=== PATIENT | female | born 1980 | race Caucasian/White ===

== ENCOUNTER 2019-06-01 06:04 | Inpatient (IN) | payer BC, SELFPAY ==
[2019-06-01 06:30] LABS: Blood Gas Oxyhemoglobin 88.2 % (94-97); Blood O2 Saturation 92.8 % (92-98.5)
[2019-06-01] MEDS ORDERED: NA CHLORIDE 0.9% 1,000 ML ONE (06:42)
[2019-06-01] MEDS ORDERED: INSULIN -REGULAR HUMAN 50 UNIT/0.5 ML ML ONE ×3 (07:14→10:04)
[2019-06-01 07:16] LABS: Absolute Lymphocytes (CBC) 1.6 K/uL (0.7-4.9); Basophils % 0.3 % (0-1.3); Hematocrit 40.5 % (36.0-45.0); Lymphocytes % 6.7 % (15.3-44.8); MPV 8.8 fL (7.6-11.3); Monocytes % 9.5 % (3.3-12.3); RBC Red Blood Cell Count 5.13 M/uL (3.86-4.86)
[2019-06-01 07:18] LABS: Protime INR 0.99
[2019-06-01 07:35] LABS: Lipase 161 U/L (73-393); Troponin (Emerg Dept Use Only) < 0.02 ng/mL (0.0-0.045)
[2019-06-01 07:37] LABS: ALT/SGPT 15 U/L (12-78); AST/SGOT 9 U/L (15-37); Albumin 3.5 g/dL (3.4-5.0); Alkaline Phosphatase 123 U/L (45-117); BUN Blood Urea Nitrogen 49 mg/dL (7-18); Bicarbonate 31 mmol/L (21-32); Bilirubin Direct 0.1 mg/dL (0-0.2); Bilirubin Total 0.3 mg/dL (0.2-1.0); CKMB Creatine Kinase MB < 1.0 ng/mL (0.3-3.6); Creatine Phosphokinase 19 U/L (26-192); Potassium 3.5 mmol/L (3.5-5.1); Protein, Total 7.7 g/dL (6.4-8.2); Sodium Level 131 mmol/L (136-145)
--- NOTE | 2019-06-01 07:43 | RAD REPORT ---
EXAM DESCRIPTION: Evan Single View06/01/2019 6:28 am CLINICAL HISTORY: Chest pain/ vomiting COMPARISON: 2016 FINDINGS: The lungs appear clear of acute infiltrate. The heart is normal size IMPRESSION: No acute abnormalities displayed
[2019-06-01 07:53] LABS: Glucose Level 550 mg/dL (74-106)
--- NOTE | 2019-06-01 08:12 | ER ---
Nurse's Notes [facility] Name: Monique Junior Age: 38 yrs Sex: Female : 1980 Arrival Date: 06/01/2019 Time: 06:05 Bed 5 Private MD: Diagnosis: Hyperglycemia, unspecified;Dehydration;Hypoxemia Presentation: 06/01 06:05 Presenting complaint: EMS states: patient complaint of nausea and vomiting for 2 days. rr5 near syncopal attack, hit her butt, No LOC noted. she is insulin dependent last check of her sugar was Sunday she is taking the insulin but not checking the sugar. CBG 591mg/dl. positive orthostatic hypotension systolic BP from 100-70mmHG and HR of 100-120 bpm. conscious oriented. 06:05 Transition of care: patient was not received from another setting of care. Onset of rr5 symptoms was June 01, 2019. Risk Assessment: Do you want to hurt yourself or someone else? Patient reports no desire to harm self or others. Initial Sepsis Screen: Does the patient meet any 2 criteria? RR > 20 per min. Systolic BP < 90 mmHg. HR > 90 bpm. Yes Does the patient have a suspected source of infection? No. Patient's initial sepsis screen is negative. Care prior to arrival: IV cannula at right hand G22 by EMS. 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 - Social history:: Smoking status: Patient uses tobacco products, smokes one-half pack cigarettes per day, Patient/guardian denies using alcohol, street drugs. - Ebola Screening: : Patient negative for fever greater than or equal to 101.5 degrees Fahrenheit, and additional compatible Ebola Virus Disease symptoms Patient denies exposure to infectious person Patient denies travel to an Ebola-affected area in the 21 days before illness onset. Screenin:22 Abuse screen: Denies threats or abuse. Denies injuries from another. Nutritional rr5 screening: No deficits noted. Tuberculosis screening: No symptoms or risk factors identified. Fall Risk IV access (20 points). Gait- Weak (10 pts.). Mental Status- Oriented to own ability (0 pts). Total Caputo Fall Scale indicates Low Risk Score (25-44 pts). Fall prevention measures have been instituted. Side Rails Up X 2 Placed close to Nursing Station Frequent Obs/Assesments occuring Family Present and informed to notify staff if they need to leave bedside As available Patient and Family Educated on Fall Prevention Program and strategies. Assessment: 06:05 General: Appears in no apparent distress. uncomfortable, Behavior is cooperative, rr5 drowsy. Pain: Complains of pain in back,buttocks and knees Pain does not radiate. Pain currently is 8 out of 10 on a pain scale. Quality of pain is described as aching, Pain began suddenly. Neuro: Level of Consciousness is awake, obeys commands, drowsy. Oriented to person, place, time, situation, Appropriate for age Speech is normal, Reports a syncopal episode. 06:05 Cardiovascular: Capillary refill < 3 seconds Patient's skin is warm and dry. Rhythm is rr5 sinus tachycardia. Respiratory: Airway is patent Respiratory effort is even, unlabored, Respiratory pattern is regular, symmetrical, tachypnea. GI: Abdomen is flat, Reports nausea, vomiting. : No signs and/or symptoms were reported regarding the genitourinary system. EENT: No signs and/or symptoms were reported regarding the EENT system. Derm: Skin is intact, Skin temperature is warm. Musculoskeletal: Circulation, motion, and sensation intact. Capillary refill < 3 seconds, Range of motion: intact in all extremities. 06:16 Reassessment: Patient appears in no apparent distress at this time. ED provider aware rr5 for the CBG > 500mg/dl with order made and carried out. 07:19 Reassessment: lights dimmed for patient comfort. Family member at bedside. Call light ss within reach. 08:30 Reassessment: Pt is resting in exam room 5. Eyes closed, respirations remain even and ss unlabored. Pt is difficult to arouse, but awake with painful stimuli and/or loud verbal stimuli. Daughter at bedside. Awaiting room assignment for admission. 09:56 Reassessment: Room assignment of 403 given. Daughter notified and asks that Dr. Estrella ss sees patient to discuss results and plan of care prior to leaving ED. Dr. Estrella called per request and also because blood pressure is 77/54 at this time. Awaiting return phone call. Neuro: Level of Consciousness is awake, drowsy. Respiratory: Airway is patent Respiratory effort is even, unlabored, Respiratory pattern is regular, symmetrical. Derm: Skin is pink, warm \T\ dry. 10:25 Reassessment: Iveth Lee NP and Dr. Mccoy notified that patient's blood pressure ss has not improved despite fluid administration. Pt still appears drowsy and difficult to arouse. Iveth Lee orders to administer Narcan 0.2 IVP and to observe for improvement. 10:27 Reassessment: Pt appears restless at this time, states she has all of her chronic pain ss that came back suddenly after Narcan administration. Pt is awake and alert. 11:00 Reassessment: Pt is awake, alert and obeys commands. Is upset because after Narcan ss administration her chronic pain has increased significantly. Iveth Lee NP notified. No further orders or interventions given. at bedside now and verbalizes understanding that no further pain medication have been ordered for the stay in the ER and patient will soon be transferred to fourth floor for further observation, assessment and/or interventions. Patient states that she is ready to go upstairs right now otherwise she will want to go home because she is mad that no other pain medications have been ordered at this time. Vital Signs: 06:05 BP 85 / 70; Pulse 110; Resp 24; Temp 99.4; Pulse Ox 98% ; Weight 54.43 kg; Height 5 ft. rr5 0 in. (152.40 cm); Pain 8/10; 06:30 BP 88 / 71; Pulse 108; Resp 20; Pulse Ox 97% on R/A; rr5 07:00 BP 92 / 64; Pulse 109; Resp 21; Pulse Ox 97% on R/A; rr5 07:35 BP 93 / 72; Pulse 109; Resp 22; Temp 99.2(O); Pulse Ox 97% on R/A; Pain 8/10; ss 08:44 BP 109 / 81; Pulse 110; Resp 21; Temp 99.4(TE); Pulse Ox 97% on R/A; ss 09:39 BP 83 / 60; Pulse 101; Resp 20; ss 09:45 BP 78 / 60; Pulse 102; Resp 20; Pulse Ox 96% on R/A; ss 09:54 BP 77 / 54; Pulse 105; Resp 21; Temp 98.6(O); Pulse Ox 98% on R/A; ss 10:17 BP 68 / 51; Pulse 103; ss 10:17 Pulse Ox 96% on R/A; ss 10:26 BP 66 / 46; Pulse 106; Resp 19; Pulse Ox 95% on R/A; ss 10:54 BP 84 / 63; Pulse 102; Resp 22; Pulse Ox 96% on R/A; Pain 9/10; ss 11:03 BP 93 / 65; Pulse 100; ss 11:03 Pulse Ox 98% on R/A; ss 06:05 Body Mass Index 23.44 (54.43 kg, 152.40 cm) rr5 Vitals: 08:30 Cardiac Rhythm Assessment Sinus tach. ss ED Course: 06:05 Patient arrived in ED. ds1 06:05 Patient has correct armband on for positive identification. Placed in gown. Bed in low rr5 position. Call light in reach. Side rails up X2. monitor tech on. Pulse ox on. NIBP on. 06:05 Maintain EMS IV. Dressing intact. Site clean \T\ dry. Gauge \T\ site: G22 at right hand. rr 5 flush well but slow IV flow noted.. 06:06 [facility]. snw 06:06 Barry Harrison MD is Attending Physician. snw 06:12 Jarrett Cutler RN is Primary Nurse. rr5 06:15 Warm blanket given. Trendelenburg postion. rr5 06:17 Triage completed. rr5 06:21 Arm band placed on right wrist. rr5 06:28 Chest Single View XRAY In Process Unspecified. EDMS 06:50 Inserted saline lock: 20 gauge in right wrist, using aseptic technique. Blood collected.rr5 06:50 Initial lab(s) drawn, by me, First set of blood cultures drawn by me. rr5 08:11 Celine Estrella MD is Hospitalizing Provider. snw 09:01 No provider procedures requiring assistance completed. Patient admitted, IV remains in ss place. 10:54 Straight cath inserted, using sterile technique, 16 Fr. Specimen obtained. Returned ss cloudy urine. Patient tolerated well. Patient maintains SpO2 saturation greater than 95% on room air. Administered Medications: 06:50 Drug: NS 0.9% (30 ml/kg) 30 ml/kg Route: IV; Rate: bolus; Site: right wrist; rr5 10:30 Follow up: IV Status: Completed infusion; IV Intake: 1632ml ss 11:01 Follow up: Dr. Braydon Mccoy orders to have rest of 2nd liter bolus given now ss 07:02 Drug: Insulin Regular Human 5 units {Co-Signature: jconor (Tono Epps RN).} Route: rr5 IVP; Site: right wrist; 07:52 Follow up: Response: No adverse reaction; Blood sugar is lowered sv 07:56 Drug: Insulin Regular Human 5 units {Co-Signature: sv (Arleen Ceron RN).} Route: ss IVP; Site: right wrist; 08:45 Follow up: Response: Blood sugar is lowered ss 09:49 Drug: Insulin Regular Human 5 units {Co-Signature: sv (Arleen Ceron RN).} Route: ss IVP; Site: right wrist; 10:58 Follow up: Response: Blood sugar is lowered ss 10:26 Drug: NARcan 0.2 mg Route: IVP; Site: right wrist; ss 11:11 Follow up: Response: Marked relief of symptoms ss 10:57 Not Given (provider discretion, 0.2 mg ordered): NARcan 0.4 mg IVP once ss Point of Care Testing: Blood Glucose: 06:16 Blood Glucose: High (>450 mg/dL); jd3 07:35 Blood Glucose: 439 mg/dL; ss 08:44 Blood Glucose: 361 mg/dL; ss 09:45 Blood Glucose: 374 mg/dL; ss 10:55 Blood Glucose: 238 mg/dL; ss 06:16 blood drawn to send to lab. [facility] Ranges: Intake: 10:30 IV: 1632ml; Total: 1632ml. ss Output: 10:55 Urine: 300ml (Straight Cath); Total: 300ml. ss Outcome: 08:12 Decision to Hospitalize by Provider. snw 09:01 Instructed on the need for admit. ss 11:18 Admitted to Tele accompanied by tech, family with patient, via stretcher, room 403, Report called to Mitzi 11:18 Condition: improved 11:19 Patient left the ED. ss Signatures: Dispatcher [employer] Arleen Griffin, RN RN sv Iveth eLe, MARGARET-C UI APPLICATION DEVELOPER-Raquel Cruz ds1 Patricia Carson RN RN ss Tono Epps RN RN jd3 Jarrett Cutler RN RN rr5 Tono barrosd3 Arleen Ceron RN sv Corrections: (The following items were deleted from the chart) 07:05 06:05 Acuity: MORRO 3 rr5 rr5 07:06 06:05 Initial Sepsis Screen: Does the patient meet any 2 criteria? Systolic BP < 90 rr5 mmHg. HR > 90 bpm. Yes Does the patient have a suspected source of infection? No. Patient's initial sepsis screen is negative. rr5 09:05 06:21 Home Meds: gabapentin oral oral; rr5 ss 17:49 10:15 Reassessment: Iveth Lee, TIMERS INSPECTOR and Dr. Mccoy notified that patient's blood ss pressure has not improved despite fluid administration. Pt still appears drowsy and difficult to arouse. Iveth Lee orders to administer Narcan 0.2 IVP and to observe for improvement. ss
--- NOTE | 2019-06-01 08:13 | EDPHYS ---
Physician Documentation [facility] Name: Monique Junior Age: 38 yrs Sex: Female : 1980 Arrival Date: 06/01/2019 Time: 06:05 Bed 5 Private MD: ED Physician Barry Harrison HPI: 06/01 06:20 This 38 yrs old Female presents to ER via EMS with complaints of snw Nausea/Vomiting, Near Syncope. 06:20 The patient presents to the emergency department with nausea, vomiting, abdominal pain. snw Onset: The symptoms/episode began/occurred suddenly, 2.5 day(s) ago. Possible causes: flare up of bowel problem, gastroparesis, IDDM. The symptoms are aggravated by nothing. Severity of symptoms: At their worst the symptoms were severe in the emergency department the symptoms have improved. The patient has experienced similar episodes in the past, multiple times. It is unknown whether or not the patient has recently seen a physician, Dr. Trent/Dr. Echols. 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 - Social history:: Smoking status: Patient uses tobacco products, smokes one-half pack cigarettes per day, Patient/guardian denies using alcohol, street drugs. - Ebola Screening: : Patient negative for fever greater than or equal to 101.5 degrees Fahrenheit, and additional compatible Ebola Virus Disease symptoms Patient denies exposure to infectious person Patient denies travel to an Ebola-affected area in the 21 days before illness onset. ROS: 06:19 Eyes: Negative for injury, pain, redness, and discharge, ENT: Negative for injury, snw pain, and discharge, Neck: Negative for injury, pain, and swelling, Cardiovascular: Negative for chest pain, palpitations, and edema, Respiratory: Negative for shortness of breath, cough, wheezing, and pleuritic chest pain, Back: Negative for injury and pain, : Negative for injury, bleeding, discharge, and swelling, MS/Extremity: Negative for injury and deformity, Skin: Negative for injury, rash, and discoloration. 06:19 Constitutional: Positive for fatigue, malaise, poor PO intake. 06:19 Abdomen/GI: Positive for nausea and vomiting. 06:19 Neuro: Positive for near syncope. Exam: 06:18 Head/Face: Normocephalic, atraumatic. Eyes: Pupils equal round and reactive to light, snw extra-ocular motions intact. Lids and lashes normal. Conjunctiva and sclera are non-icteric and not injected. Cornea within normal limits. Periorbital areas with no swelling, redness, or edema. 06:18 Neck: Trachea midline, no thyromegaly or masses palpated, and no cervical lymphadenopathy. Supple, full range of motion without nuchal rigidity, or vertebral point tenderness. No Meningismus. Chest/axilla: Normal chest wall appearance and motion. Nontender with no deformity. No lesions are appreciated. 06:18 Respiratory: Lungs have equal breath sounds bilaterally, clear to auscultation and percussion. No rales, rhonchi or wheezes noted. No increased work of breathing, no retractions or nasal flaring. Abdomen/GI: Soft, non-tender, with hypoactive bowel sounds. No distension or tympany. No guarding or rebound. No evidence of tenderness throughout. Back: No spinal tenderness. No costovertebral tenderness. Full range of motion. 06:18 Neuro: Awake and alert, GCS 15, oriented to person, place, time, and situation. Cranial nerves II-XII grossly intact. Motor strength 5/5 in all extremities. Sensory grossly intact. Cerebellar exam normal. Normal gait. Psych: Awake, alert, with orientation to person, place and time. Behavior, mood, and affect are within normal limits. 06:18 Constitutional: The patient appears alert, awake, frail, listless. 06:18 ENT: Mouth: Oral mucosa: dry, Dental exam: missing teeth, diffusely, Voice: is normal. 06:18 Cardiovascular: Rate: tachycardic, Heart sounds: normal. 06:18 Skin: Appearance: Color: pale, Moisture: dry. Vital Signs: 06:05 BP 85 / 70; Pulse 110; Resp 24; Temp 99.4; Pulse Ox 98% ; Weight 54.43 kg; Height 5 ft. rr5 0 in. (152.40 cm); Pain 8/10; 06:30 BP 88 / 71; Pulse 108; Resp 20; Pulse Ox 97% on R/A; rr5 07:00 BP 92 / 64; Pulse 109; Resp 21; Pulse Ox 97% on R/A; rr5 07:35 BP 93 / 72; Pulse 109; Resp 22; Temp 99.2(O); Pulse Ox 97% on R/A; Pain 8/10; ss 08:44 BP 109 / 81; Pulse 110; Resp 21; Temp 99.4(TE); Pulse Ox 97% on R/A; ss 09:39 BP 83 / 60; Pulse 101; Resp 20; ss 09:45 BP 78 / 60; Pulse 102; Resp 20; Pulse Ox 96% on R/A; ss 09:54 BP 77 / 54; Pulse 105; Resp 21; Temp 98.6(O); Pulse Ox 98% on R/A; ss 10:17 BP 68 / 51; Pulse 103; ss 10:17 Pulse Ox 96% on R/A; ss 10:26 BP 66 / 46; Pulse 106; Resp 19; Pulse Ox 95% on R/A; ss 10:54 BP 84 / 63; Pulse 102; Resp 22; Pulse Ox 96% on R/A; Pain 9/10; ss 11:03 BP 93 / 65; Pulse 100; ss 11:03 Pulse Ox 98% on R/A; ss 06:05 Body Mass Index 23.44 (54.43 kg, 152.40 cm) rr5 MDM: 06:42 Data reviewed: vital signs, nurses notes. Data interpreted: Pulse oximetry: on room air snw is 98 %. Interpretation: normal. ED course: Discussed with RT the ABG results not matching pt clinical picture, resistant to re-draw. Will await chemistries. 06:48 Patient medically screened. snw 08:12 Counseling: I had a detailed discussion with the patient and/or guardian regarding: the snw historical points, exam findings, and any diagnostic results supporting the discharge/admit diagnosis, the presence of at least one elevated blood pressure reading (>120/80) during this emergency department visit, lab results, radiology results, the need for outpatient follow up, to return to the emergency department if symptoms worsen or persist or if there are any questions or concerns that arise at home. Physician consultation: Celine Estrella MD was called at 08:00, was contacted at 08:12, regarding admission, to the telemetry unit. 11:02 ED course: pt had some hypotension post fluid bolus, has remained sedate through ER snw visit, evidence on ABG of hypoventilation, home meds include valium, tramadol, and norco. Gave Narcan 0.2mg and response was almost immediate. VSS. Will transfer to inpatient unit.. 06/01 06:11 Order name: ABG; Complete Time: 06:42 snw 06/01 06:11 Order name: T\T\S [facility] 06/01 06:11 Order name: Basic Metabolic Panel [facility] 06/01 06:11 Order name: Blood Culture Adult (2) snw 06/01 06:11 Order name: CBC with Diff w 06/01 06:11 Order name: Ckmb sn 06/01 06:11 Order name: CPK [facility] 06/01 06:11 Order name: Lactate [facility] 06/01 06:11 Order name: LFT's [facility] 06/01 06:11 Order name: Lipase; Complete Time: 07:53 snw 06/01 06:11 Order name: Procalcitonin; Complete Time: 07:55 snw 06/01 06:11 Order name: Protime (+inr); Complete Time: 07:22 snw 06/01 06:11 Order name: Ptt, Activated; Complete Time: 07:22 snw 06/01 06:11 Order name: Troponin (emerg Dept Use Only); Complete Time: 07:53 snw 06/01 06:11 Order name: Urine Microscopic Only w 06/01 06:12 Order name: Type and Screen; Complete Time: 08:12 EDMS 06/01 06:12 Order name: Basic Metabolic Panel; Complete Time: 07:53 EDMS 06/01 06:13 Order name: Blood Culture EDWA 06/01 06:13 Order name: CBC with Automated Diff; Complete Time: 09:40 EDMS 06/01 06:13 Order name: CKMB Creatine Kinase MB; Complete Time: 07:53 EDMS 06/01 06:14 Order name: Glucose, Ancillary Testing; Complete Time: 06:31 EDMS 06/01 06:14 Order name: Creatine Phosphokinase; Complete Time: 07:53 EDMS 06/01 06:14 Order name: Lactate; Complete Time: 07:53 EDMS 06/01 06:14 Order name: Liver (Hepatic) Function; Complete Time: 07:53 EDMS 06/01 06:15 Order name: Glucose, Ancillary Testing EDMS 06/01 06:51 Order name: Ketone, Serum; Complete Time: 07:53 snw 06/01 09:28 Order name: Manual Differential; Complete Time: 09:40 EDMS 06/01 10:07 Order name: Urine Drug Screen eb 06/01 10:24 Order name: ABO/RH no charge; Complete Time: 10:26 EDMS 06/01 06:11 Order name: Urine Test (obtain specimen); Complete Time: 10:59 snw 06/01 06:11 Order name: Chest Single View XRAY; Complete Time: 07:53 snw 06/01 06:11 Order name: Accucheck; Complete Time: 06:25 snw 06/01 06:11 Order name: Cardiac monitoring; Complete Time: 06:24 snw 06/01 06:11 Order name: EKG - Nurse/Tech; Complete Time: 07:06 snw 06/01 06:11 Order name: IV Saline Lock - Large Bore; Complete Time: 07:06 snw 06/01 06:11 Order name: Labs collected and sent; Complete Time: 07:06 snw 06/01 06:11 Order name: O2 Per Protocol; Complete Time: 06:26 snw 06/01 06:11 Order name: O2 Sat Monitoring; Complete Time: 06:26 snw 06/01 06:11 Order name: Urine Dipstick-Ancillary (obtain specimen); Complete Time: 10:59 snw 06/01 06:52 Order name: FSBS: at 0730; Complete Time: 07:41 snw 06/01 09:42 Order name: FSBS; Complete Time: 09:45 snw 06/01 09:46 Order name: NPO; Complete Time: 09:49 snw 06/01 10:36 Order name: Lactate Sepsis 2 HR Follow-up; Complete Time: 10:37 EDMS 06/01 10:50 Order name: Urine Dipstick--Ancillary (enter results) eb 06/01 10:50 Order name: Urine --Ancillary (enter results) eb 06/01 11:01 Order name: Urine Drug Screen; Complete Time: 11:02 EDMS 06/01 11:05 Order name: FSBS; Complete Time: 11:11 snw 06/01 11:11 Order name: Urine --Ancillary; Complete Time: 11:18 EDMS 06/01 11:11 Order name: Urine Dipstick-Ancillary; Complete Time: 11:18 EDMS 06/01 11:18 Order name: Glucose, Ancillary Testing; Complete Time: 11:20 EDMS 06/01 11:18 Order name: Glucose, Ancillary Testing; Complete Time: 11:20 EDMS 06/01 11:18 Order name: Glucose, Ancillary Testing; Complete Time: 11:20 EDMS 06/01 11:18 Order name: Glucose, Ancillary Testing; Complete Time: 11:20 EDMS Administered Medications: 06:50 Drug: NS 0.9% (30 ml/kg) 30 ml/kg Route: IV; Rate: bolus; Site: right wrist; rr5 10:30 Follow up: IV Status: Completed infusion; IV Intake: 1632ml ss 11:01 Follow up: Dr. Braydon Mccoy orders to have rest of 2nd liter bolus given now ss 07:02 Drug: Insulin Regular Human 5 units {Co-Signature: jd3 (Tono Epps RN).} Route: rr5 IVP; Site: right wrist; 07:52 Follow up: Response: No adverse reaction; Blood sugar is lowered sv 07:56 Drug: Insulin Regular Human 5 units {Co-Signature: sv (Arleen Ceron RN).} Route: ss IVP; Site: right wrist; 08:45 Follow up: Response: Blood sugar is lowered ss 09:49 Drug: Insulin Regular Human 5 units {Co-Signature: sv (Arleen Ceron RN).} Route: ss IVP; Site: right wrist; 10:58 Follow up: Response: Blood sugar is lowered ss 10:26 Drug: NARcan 0.2 mg Route: IVP; Site: right wrist; ss 11:11 Follow up: Response: Marked relief of symptoms ss 10:57 Not Given (provider discretion, 0.2 mg ordered): NARcan 0.4 mg IVP once ss Point of Care Testing: Blood Glucose: 06:16 Blood Glucose: High (>450 mg/dL); jd3 07:35 Blood Glucose: 439 mg/dL; ss 08:44 Blood Glucose: 361 mg/dL; ss 09:45 Blood Glucose: 374 mg/dL; ss 10:55 Blood Glucose: 238 mg/dL; ss 06:16 blood drawn to send to lab. jd3 Ranges: Critical Glucose Levels:Adult <50 mg/dl or >400 mg/dl <40 mg/dl or >180 mg/dl Disposition: 06/01/19 08:12 Hospitalization ordered by Celine Estrella for Inpatient Admission. Preliminary diagnosis are Hyperglycemia, unspecified, Dehydration, Hypoxemia. - Bed requested for Telemetry/MedSurg (Inpatient). - Status is Inpatient Admission. ss - Condition is Stable. - Problem is new. - Symptoms are unchanged. UTI on Admission? No Addendum: 06/05/2019 07:58 Co-signature as Attending Physician, Barry Harrison MD. g s Signatures: Dispatcher [employer] EDWA Arleen Ceron, CONSTANTINO RN Iveth Bedoya, [employer]-C [employer]-Patricia Rolle RN RN Barry Harrison MD MD gs Botello, Elizabeth eb Roque, Raymond RN RN rr5 Tono Epps RN jd3 Arleen Ceron RN Corrections: (The following items were deleted from the chart) 06/01 07:12 06:15 GLUCOSE+C.LAB.BRZ ordered. EDWA EDMS 09:05 06:21 Home Meds: gabapentin oral oral; rr5 09:33 08:12 Hospitalization Ordered by Celine Estrella MD for Inpatient Admission. Preliminary eb diagnosis is Hyperglycemia, unspecified; Dehydration; Hypoxemia. Bed requested for Telemetry/MedSurg (Inpatient). Status is Inpatient Admission. Condition is Stable. Problem is new. Symptoms are unchanged. UTI on Admission? No. snw 11:19 09:33 06/01/2019 08:12 Hospitalization Ordered by Celine Estrella MD for Inpatient ss Admission. Preliminary diagnosis is Hyperglycemia, unspecified; Dehydration; Hypoxemia. Bed requested for Telemetry/MedSurg (Inpatient). Status is Inpatient Admission. Condition is Stable. Problem is new. Symptoms are unchanged. UTI on Admission? No. eb
[2019-06-01 09:27] LABS: Blood Morphology Comment NOT SEEN (NOT SEEN); Platelet Estimate ADEQ
[2019-06-01] MEDS ORDERED: NALOXONE 0.4 MG/ML VIAL ONE (10:35)
[2019-06-01 11:01] LABS: Barbiturates NEGATIVE (NEGATIVE); Benzodiazepines POSITIVE (NEGATIVE); Cocaine NEGATIVE (NEGATIVE); METHAMPHETAM NEGATIVE (NEGATIVE); Methadone NEGATIVE (NEGATIVE); Opiates POSITIVE (NEGATIVE); Phencyclidine NEGATIVE (NEGATIVE); THC Cannibis NEGATIVE (NEGATIVE)
[2019-06-01 11:11] LABS: Urine Blood NEGATIVE (NEG); Urine Glucose 2+ (NEG); Urine Protein 1+ (NEG); Urine Specific Gravity 1.015 (1.005-1.030)
[2019-06-01] MEDS ORDERED: ACETAMINOPHEN 500 MG TAB PO PRN (11:21)
[2019-06-01] MEDS: NA CHLORIDE 0.9% 1,000 ML IV SCH ×2 (13:02→22:00)
[2019-06-01] MEDS: INSULIN -REGULAR HUMAN 50 UNIT/0.5 ML ML SQ SCH ×3 (13:03→21:00)
[2019-06-01] MEDS ORDERED: TRAMADOL HCL 50 MG TAB PO PRN (13:05)
[2019-06-01] MEDS ORDERED: D50W 25 GM/50 ML SYRINGE IV PRN (15:12)
[2019-06-01] MEDS ORDERED: GLUCAGON 1 MG/VIAL IM PRN (15:12)
[2019-06-01] MEDS ORDERED: DIAZEPAM 5 MG TABLET PO PRN (15:17)
[2019-06-01] MEDS: CEFTRIAXONE/SWI 1gm 1 GM/10 ML SYR IVP SCH (16:00)
[2019-06-01] MEDS: INSULIN GLARGINE 100 UNITS/ML SQ SCH (16:50)
--- NOTE | 2019-06-01 20:10 | EKG ---
Test Date: 2019-06-01 Test Time: 06:14:03 Batch Still Operator: GIGI MEASUREMENT RESULTS: Intervals: Rate: 112 AK: 136 QRSD: 84 QT: 324 QTc: 442 [place]: P: 62 AK: 136 QRS: 67 T: 162 INTERPRETIVE STATEMENTS: Sinus tachycardia ST & T wave abnormality, consider lateral ischemia Abnormal ECG Compared to ECG 12/28/2016 17:24:00 ST (T wave) deviation now present Possible ischemia now present Electronically Signed On 06-01-19 20:08:52 CDT by Rowdy Crowell
[2019-06-01] MEDS ORDERED: HOME MED 1 EA UNK (Gabapentin [Gabapentin] 600 MG) PO SCH (21:00)
[2019-06-01] MEDS ORDERED: MIDODRINE HCL 5 MG TABLET PO SCH (21:00)
[2019-06-01] MEDS: GABAPENTIN 300 MG CAP PO SCH (21:52)
[2019-06-01] MEDS: HYDROCODONE/APAP 7.5/325 MG TAB PO PRN (21:52)
--- NOTE | 2019-06-02 01:55 | HP ---
Date of Admission: 06/01/2019 Chief Complaint: Altered mental status, hyperglycemia. History Of Present Illness: The patient is a 38-year-old female with past medical history of diabete s with neuropathy, chronic back pain on chronic pain medications and recent infection of the nose wit h Acinetobacter, completed Cipro recently, comes in with a near-syncopal episode. The patient was in the bathroom, tried to get off the commode and fell back, blacked out for couple of seconds, felt ve ry weak. The patient came into the ER for further evaluation. Her symptoms are constant, moderate, progressively worsening. She did report some nausea and vomiting x1. No fever or chills. The patie nt reports back pain and pain in her arms, which is chronic. In the ER her workup was [place] [address], her creatinine was elevated at 1.31, usually normal at baseline. Her anion gap was not elevated. She did have elevated lactate at 3.6. Troponin level was negative. Chest x-ray was clear. UA is still pending; however, did show some trace leukocyte esterase. She does have a history of frequent UTIs. The patient was given IV fluids and then referred for admissio n. She was also given 10 units of regular insulin. Past Medical History: Diabetes mellitus type 2, insulin requiring; chronic UTI; chronic back pain, o n narcotics; gastroparesis; MRSA of the nose. Surgical History: x3. Allergies: NO KNOWN DRUG ALLERGIES. Medications: List reviewed. Social History: The patient smokes cigarettes about half a pack per day since age of 12. The patien t denies any alcohol use, has good social support, has 3 kids, . Family History: Diabetes and COPD within the family. Review of Systems: Ten-point systems reviewed, negative except as per HPI. Physical Examination: Vital Signs: Blood pressure 85/70, pulse 110, respirations 24, temperature 99.4, O2 98% on room air. General: Awake, alert, oriented x3. Lethargic and ill-appearing female. HEENT: Normocephalic, atraumatic. PERRLA, EOMI. Dry mucous membranes. Oropharynx is clear. Conju nctivae anicteric. Neck: Supple. No JVD. Trachea midline. CV: S1, S2. Sinus tachycardia. No murmurs. Peripheral pulses present. Respiratory: The patient is tachypneic with use of accessory muscles. No wheezing or stridor. Gastrointestinal: Abdomen is soft, nontender, nondistended. Positive bowel sounds. No guarding or rigidity. Extremities: No clubbing, cyanosis, or edema. No calf tenderness. Neuro: Cranial nerves 2-12 intact grossly. No focal neurological deficit. Speech is normal. Skin: No rashes. Normal skin turgor. Psych: Mood is depressed. Affect is congruent with mood. Insight and judgment are fair. Laboratory Data: UA shows negative nitrite, trace leukocyte esterase. Microscopy is pending and pre gnancy test is negative. Sodium 131, potassium 3.5, chloride 92, CO2 31, BUN 49, creatinine 1.31, gl ucose 550, lactate 3.6, calcium 9.8, alkaline phosphatase 123, AST 9, ALT 15, troponin less than 0.02 , albumin 3.5, lipase 161, Procalcitonin 0.15. WBC 23.6, H and H 12.5 and 40.5, platelets 334, MCV 7 8.9, MCH 24.3, INR 0.99. Acetone negative. UDS positive for opiates and benzodiazepines. ABG; pH 7 .46, pCO2 45.9, PO2 67, bicarb 32.4. Blood cultures, no growth to date. Chest x-ray shows no acute infiltrate, personally reviewed. Assessment And Plan: A 38-year-old female with: 1.Sepsis. The patient has elevated white blood cell count 23.6 with tachycardia and tachypnea, uncl ear etiology, likely related to urinary tract infection. UA microscopy is still pending. Chest x-ra y is clear. We will continue with IV fluid resuscitation, obtain cultures. The patient does have en d-organ damage including elevated creatinine, kidney dysfunction, and also has lactate of 3.6. We wi ll repeat lactate after resuscitation. 2.Diabetes mellitus type 2 with severe hyperglycemia, not in diabetic ketoacidosis. The patient rec eived 10 units of regular insulin. We will resume home dose of Levemir. Check hemoglobin A1c. 3.Acute kidney injury. We will continue with IV fluids, likely due to prerenal azotemia, sepsis. W e will continue to monitor, avoid NSAIDs and nephrotoxins. 4.Chronic back pain, on tramadol and Tylenol No. 3, codeine. We will adjust pain medications. The patient also takes benzodiazepines as needed for anxiety. We will hold for now. 5.Acute cystitis without hematuria. We will start on Rocephin, follow up on urine cultures. 6.Deep venous thrombosis prophylaxis, addressed. Plan: Admit the patient to Med-Surg, place as inpatient. Length of stay greater than 2 midnights. We will continue to monitor blood glucose levels closely. The patient does have some pseudohyponatre allyssa. /SMITH Voice ID: [id number]
[2019-06-02 04:55] LABS: Basophils % 0.2 % (0-1.3); Eosinophils % 0.2 % (0-4.4); Hematocrit 30.8 % (36.0-45.0); Lymphocytes % 25.5 % (15.3-44.8); MPV 8.3 fL (7.6-11.3); Monocytes % 7.8 % (3.3-12.3)
[2019-06-02 05:12] LABS: ALT/SGPT 11 U/L (12-78); AST/SGOT 7 U/L (15-37); Albumin 2.6 g/dL (3.4-5.0); Alkaline Phosphatase 78 U/L (45-117); BUN Blood Urea Nitrogen 17 mg/dL (7-18); Bicarbonate 30 mmol/L (21-32); Bilirubin Total 0.1 mg/dL (0.2-1.0); Glucose Level 228 mg/dL (74-106); Magnesium 2.1 mg/dL (1.8-2.4); Phosphorus 1.7 mg/dL (2.5-4.9); Potassium 3.3 mmol/L (3.5-5.1); Protein, Total 5.9 g/dL (6.4-8.2); Sodium Level 138 mmol/L (136-145)
[2019-06-02] MEDS: INSULIN -REGULAR HUMAN 50 UNIT/0.5 ML ML SQ SCH ×4 (08:19→20:35)
[2019-06-02] MEDS: GABAPENTIN 300 MG CAP PO SCH ×3 (08:19→20:34)
[2019-06-02] MEDS: CEFTRIAXONE/SWI 1gm 1 GM/10 ML SYR IVP SCH (08:20)
[2019-06-02] MEDS: INSULIN GLARGINE 100 UNITS/ML SQ SCH ×2 (08:20→16:57)
[2019-06-02] MEDS: NA CHLORIDE 0.9% 1,000 ML IV SCH ×5 (08:21→22:14)
[2019-06-02] MEDS: HYDROCODONE/APAP 7.5/325 MG TAB PO PRN ×3 (10:13→22:14)
[2019-06-02] MEDS: ONDANSETRON 4 MG/2 ML VIAL IV PRN (11:34)
[2019-06-02 15:33] LABS: Urine Bacteria 20-50 /HPF (<20); Urine RBC <5 /HPF (NONE SEEN)
[2019-06-02 15:34] LABS: Urine Culture Reflex Order REFLEXED
[2019-06-02] MEDS ORDERED: NITROGLYCERIN 0.4 MG/TAB SL ONE (16:11)
[2019-06-02] MEDS ORDERED: ENOXAPARIN 40 MG/0.4 ML SQ SCH (17:00)
--- NOTE | 2019-06-02 18:16 | P.PN ---
Date of Service: 06/02/19 Called for patient having chest pain. Should be noted that patient has been going downstairs to smoke - being wheeled down by family members after being counseled repeatedly. She was told explicitly that she has sepsis, hypotension requiring IVF bolus and hydration and needs to be monitored which cannot be done while she leaves the hospital to smoke. She understood that this can result in worsening condition, even . Primary nurse Nacho Valdes and charge nurse Perry Naranjo at bedside. Sublingual nitro given and EKG, troponin were negative. Symptoms resolved. Patient is non compliant stating that it her "right" to go down and smoke. She is also verbally abusive. Plan: DC in am once more stable clinically.
--- NOTE | 2019-06-02 20:04 | EKG ---
Test Date: 2019-06-02 Test Time: 16:13:53 Tip Printer: ERICK MEASUREMENT RESULTS: Intervals: Rate: 96 NH: 152 QRSD: 82 QT: 352 QTc: 444 [place]: P: 47 NH: 152 QRS: 46 T: 236 INTERPRETIVE STATEMENTS: Normal sinus rhythm Nonspecific ST and T wave abnormality Abnormal ECG Compared to ECG 06/01/2019 06:14:03 Sinus tachycardia no longer present Possible ischemia no longer present ST (T wave) deviation still present Electronically Signed On 06-02-19 20:03:48 CDT by Rowdy Crowell
--- NOTE | 2019-06-02 20:29 | PN ---
Date of Progress Note: 06/02/2019 Subjective: Patient seen and examined. Chart reviewed and case discussed with RN. The patient cont inues to go downstairs to smoke. Asking for more pain medications. Did have an episode of hypotensi on with blood pressure 70/50. The patient was bolused with 1 L with improvement to 107 systolic. Medications: List reviewed. Physical Examination: Vital Signs: Temperature 98.4, heart rate 78, blood pressure 70/50, respirations 16, O2 of 95% on ro om air. General: Awake, alert, oriented x3, in some mild distress, ill-appearing female. CV: S1, S2. Regular rate and rhythm. Peripheral pulses present. Respiratory: Moving air well bilaterally. No wheezing or stridor. Gastrointestinal: Abdomen is soft. No tenderness to palpation. Bowel sounds positive. No distenti on. Extremities: No clubbing, cyanosis, or edema. Neurologic: Cranial nerves 2 through 12 intact grossly. No focal neurological deficit. Laboratory Data: Sodium 138, potassium 3.3, chloride 105, CO2 of 30, BUN 17, creatinine 0.53, glucos e 228, calcium 8.3, phosphorus 1.7, magnesium 2.1, albumin 2.6. WBC 15.9, H and H of 9.7 and 30.8, p latelets 251, neutrophils 66%. Blood cultures, no growth to date. Assessment And Plan: A 38-year-old female with: 1.Sepsis, improving. White blood cell count trending downwards. However, patient did have episode of acute hypotension, which improved with IV fluid resuscitation, likely secondary to urinary tract i nfection. Urine culture is not available. Blood cultures, no growth to date. 2.Diabetes mellitus type 2 with severe hyperglycemia, improving. We will continue with Lantus and s liding scale insulin. 3.Hypokalemia. We will replace and monitor. 4.Hypophosphatemia. We will continue to monitor and replace. 5.Acute kidney injury, resolved, likely secondary to prerenal azotemia and sepsis. Continue to padma tor creatinine level. Avoid NSAIDs. 6.Chronic back pain. The patient asking for stronger pain medications. I want to be cautious due t o her hypotension. 7.Acute cystitis without hematuria. Continue on Rocephin. 8.Deep venous thrombosis prophylaxis addressed. Plan: Likely discharge in a.m. once blood pressure is improved, electrolytes have been replaced, and sepsis has resolved. Advance diet as tolerated. SA/MODL Voice ID: [id number] Report ID: [id number]
[2019-06-02] MEDS ORDERED: DIAZEPAM 5 MG TABLET PO PRN ×2 (22:38→23:04)
[2019-06-03] MEDS: NA CHLORIDE 0.9% 1,000 ML IV SCH ×3 (03:21→13:21)
[2019-06-03] MEDS: HYDROCODONE/APAP 7.5/325 MG TAB PO PRN ×2 (03:51→10:29)
[2019-06-03 06:17] LABS: ALT/SGPT 9 U/L (12-78); AST/SGOT 7 U/L (15-37); Albumin 2.5 g/dL (3.4-5.0); Alkaline Phosphatase 75 U/L (45-117); BUN Blood Urea Nitrogen 5 mg/dL (7-18); Bicarbonate 30 mmol/L (21-32); Glucose Level 163 mg/dL (74-106); Potassium 3.6 mmol/L (3.5-5.1); Protein, Total 5.4 g/dL (6.4-8.2); Sodium Level 140 mmol/L (136-145)
[2019-06-03 06:18] LABS: Bilirubin Total < 0.1 mg/dL (0.2-1.0)
[2019-06-03 06:24] LABS: Absolute Lymphocytes (CBC) 3.5 K/uL (0.7-4.9); Basophils % 0.3 % (0-1.3); Hematocrit 28.1 % (36.0-45.0); Lymphocytes % 39.9 % (15.3-44.8); MPV 8.7 fL (7.6-11.3); Monocytes % 9.4 % (3.3-12.3); RBC Red Blood Cell Count 3.62 M/uL (3.86-4.86)
[2019-06-03] MEDS: INSULIN -REGULAR HUMAN 50 UNIT/0.5 ML ML SQ SCH ×2 (07:30→11:18)
[2019-06-03] MEDS: CEFTRIAXONE/SWI 1gm 1 GM/10 ML SYR IVP SCH (08:51)
[2019-06-03] MEDS: GABAPENTIN 300 MG CAP PO SCH (08:52)
[2019-06-03] MEDS: INSULIN GLARGINE 100 UNITS/ML SQ SCH (08:52)
[2019-06-03] MEDS: ONDANSETRON 4 MG/2 ML VIAL IV PRN (08:52)
--- NOTE | 2019-06-04 17:13 | P.DS ---
Admission Date: 06/01/19 Discharge Date: 06/03/19 Disposition: ROUTINE DISCHARGE Discharge Condition: GOOD Brief History of Present Illness: The patient is a 38-year-old female with past medical history of diabetes with neuropathy, chronic back pain on chronic pain medications and recent infection of the nose with Acinetobacter, completed Cipro recently, comes in with a near- syncopal episode. The patient was in the bathroom, tried to get off the commode and fell back, blacked out for couple of seconds, felt very weak. The patient came into the ER for further evaluation. Her symptoms are constant, moderate, progressively worsening. She did report some nausea and vomiting x1. No fever or chills. The patient reports back pain and pain in her arms, which is chronic. In the ER her workup was [place] [address], her creatinine was elevated at 1.31, usually normal at baseline. Her anion gap was not elevated. She did have elevated lactate at 3.6. Troponin level was negative. Chest x-ray was clear. UA is still pending ; however, did show some trace leukocyte esterase. She does have a history of frequent UTIs. The patient was given IV fluids and then referred for admission. She was also given 10 units of regular insulin. Hospital Course: Patient is admitted for sepsis due to elevated white blood cell count, tachycardia and tachypnea. Her cultures remained negative throughout the stay. She was provided with IV fluid resuscitation. Her symptoms improved. She did complain of some chest pain throughout the stay. It should be noted that patient had been going downstairs to smoke - being wheeled down by family members after being counseled repeatedly. She was told explicitly that she has sepsis, hypotension requiring IVF bolus and hydration and needs to be monitored which cannot be done while she leaves the hospital to smoke. She understood that this can result in worsening condition, even . Sublingual nitro was given and EKG, troponin were negative. Symptoms resolved. Patient is non compliant stating that it her "right" to go down and smoke. She was also verbally abusive. She was also noted to have acute kidney injury, which resolved with IV fluids and resuscitation. She was started on Rocephin for acute cystitis, which was converted to oral Cefdinir on discharge as urine cultures were negative. She otherwise remained stable throughout the stay. Her diagnosis and treatment plan repeatedly explained to her. All questions were answered and patient verbalized understanding. She was then discharged home in a safe and stable manner. Vital Signs/Physical Exam: Temp Pulse Resp BP Pulse Ox 97.3 F 94 H 18 130/65 98 06/03/19 12:00 06/03/19 12:00 06/03/19 12:00 06/03/19 12:00 06/03/19 12:00 General: Alert, In no apparent distress HEENT: Atraumatic, PERRLA, EOMI Neck: Supple, JVD not distended Respiratory: Clear to auscultation bilaterally, Normal air movement Cardiovascular: Regular rate/rhythm, Normal S1 S2 Gastrointestinal: Normal bowel sounds, No tenderness Musculoskeletal: No tenderness Integumentary: No rashes Neurological: Normal speech, Normal tone, Normal affect Lymphatics: No axilla or inguinal lymphadenopathy Laboratory Data at Discharge: WBC 8.9 K/uL (4.3-10.9) D 06/03/19 05:19 Hgb 9.1 g/dL (12.0-15.0) L 06/03/19 05:19 Hct 28.1 % (36.0-45.0) L 06/03/19 05:19 Plt Count 231 K/uL (152-406) 06/03/19 05:19 PT 11.7 SECONDS (9.5-12.5) 06/01/19 06:50 INR 0.99 06/01/19 06:50 APTT 27.9 SECONDS (24.3-36.9) 06/01/19 06:50 Sodium 140 mmol/L (136-145) 06/03/19 05:19 Potassium 3.6 mmol/L (3.5-5.1) 06/03/19 05:19 BUN 5 mg/dL (7-18) L 06/03/19 05:19 Creatinine 0.42 mg/dL (0.55-1.3) L 06/03/19 05:19 Glucose 163 mg/dL (74-106) H 06/03/19 05:19 Phosphorus 1.7 mg/dL (2.5-4.9) L 06/02/19 04:15 Magnesium 2.1 mg/dL (1.8-2.4) 06/02/19 04:15 Total Bilirubin < 0.1 mg/dL (0.2-1.0) L 06/03/19 05:19 AST 7 U/L (15-37) L 06/03/19 05:19 ALT 9 U/L (12-78) L 06/03/19 05:19 Alkaline Phosphatase 75 U/L (45-117) 06/03/19 05:19 Troponin I < 0.02 ng/mL (0.0-0.045) 06/02/19 16:53 Lipase 161 U/L (73-393) 06/01/19 06:50 Home Medications: Codeine/APAP [Tylenol #3*] 1 tab PO BID PRN 06/01/19 Gabapentin 600 mg PO TID 06/01/19 Insulin Glargine Human [Lantus*] 20 units SQ BID 06/01/19 diazePAM [Diazepam] 0.5 tab PO PRN PRN 06/01/19 traMADol HCL [Ultram*] 50 mg PO PRN 06/01/19 Cefdinir [Omnicef] 300 mg PO Q12H #8 capsule 06/03/19 New Medications: Cefdinir [Omnicef] 300 mg PO Q12H #8 capsule Patient Discharge Instructions: Please follow up with your PCP in 2-3 days. Please return to the Emergency room for worsening symptoms. New medication: Cefdinir, antibiotic for a UTI. Diet: AHA Activity: Ad jacki Followup: Rosemary Hurst, PAC [ALLIED HEALTH PROFESSIONAL] - 2-3 Days (primary care physician- Call to schedule an appointment ) Time spent managing pt's care (in minutes): 55
== END 2019-06-03 14:34 | disposition home or self-care (01) | DRG 872 ==
LOC: ER 06:04 → ERHOLD 09:09 → 4TH 11:11
PROVIDERS: ADMIT Family Medicine; ATTEND Family Medicine
DX: A41.9 Sepsis, unspecified organism (principal); N30.00 Acute cystitis without hematuria; E11.65 Type 2 diabetes mellitus with hyperglycemia; E11.40 Type 2 diabetes mellitus with diabetic neuropathy, unspecified; E87.6 Hypokalemia; E83.39 Other disorders of phosphorus metabolism; G89.29 Other chronic pain; M54.9 Dorsalgia, unspecified; F17.210 Nicotine dependence, cigarettes, uncomplicated
CPT/HCPCS: 36415; 51702; 71045; 80048; 80053; 80076; 80307; 81003; 81015; 81025; 82010; 82550; 82553; 82805; 82962; 83605; 83690; 83735; 84100; 84145; 84484; 85025; 85610; 85730; 86850; 86900; 86901; 87040; 87086; 87088; 87205; 93005; 94760; 96365; 96366; 96375; 99285; J0696; J1650; J2310; J2405; J7030

== ENCOUNTER 2019-10-21 20:57 | Emergency (ER) | payer SELFPAY ==
[2019-10-21 23:40] LABS: Absolute Lymphocytes (CBC) 1.6 K/uL (0.7-4.9); Basophils % 0.4 % (0-1.3); Lymphocytes % 9.7 % (15.3-44.8); MPV 8.1 fL (7.6-11.3); RBC Red Blood Cell Count 4.71 M/uL (3.86-4.86)
[2019-10-21] MEDS ORDERED: MORPHINE 4 MG/ML SYR ONE (23:42)
[2019-10-21] MEDS ORDERED: PROMETHAZINE 25 MG/ML VIAL ONE (23:42)
[2019-10-21 23:56] LABS: Urine Blood TRACE (NEG); Urine Glucose 2+ (NEG); Urine Protein 2+ (NEG)
[2019-10-21 23:57] LABS: ALT/SGPT 37 U/L (12-78); AST/SGOT 23 U/L (15-37); Albumin 4.2 g/dL (3.4-5.0); Alkaline Phosphatase 145 U/L (45-117); BUN Blood Urea Nitrogen 9 mg/dL (7-18); Bicarbonate 29 mmol/L (21-32); Bilirubin Direct 0.1 mg/dL (0-0.2); Bilirubin Total 0.3 mg/dL (0.2-1.0); Glucose Level 287 mg/dL (74-106); Lipase 49 U/L (73-393); Potassium 3.5 mmol/L (3.5-5.1); Protein, Total 8.5 g/dL (6.4-8.2); Sodium Level 133 mmol/L (136-145)
[2019-10-22 01:10] LABS: Blood Morphology Comment NOT SEEN (NOT SEEN); Platelet Estimate ADEQ
--- NOTE | 2019-10-22 01:22 | ER ---
Nurse's Notes [facility] Name: Monique Junior Age: 38 yrs Sex: Female : 1980 Arrival Date: 10/21/2019 Time: 21:04 Bed 18 Private MD: Diagnosis: Other viral enteritis Presentation: 10/21 21:00 Presenting complaint: EMS states: Pt has been complaining of lower right quadrant pain jb4 for the past 3 days. N/V/D for 1 day. BGL 247. denies pain with urination. 21:00 Transition of care: patient was not received from another setting of care. Onset of jb4 symptoms was October 18, 2019. Risk Assessment: Do you want to hurt yourself or someone else? Patient reports no desire to harm self or others. Initial Sepsis Screen: Does the patient meet any 2 criteria? No. Patient's initial sepsis screen is negative. Does the patient have a suspected source of infection? No. Patient's initial sepsis screen is negative. Care prior to arrival: Glucose check: 247. 21:00 Method Of Arrival: EMS: [facility] jb4 21:00 Acuity: MORRO 3 jb4 Triage Assessment: 21:06 General: Appears in no apparent distress. uncomfortable, Behavior is calm, cooperative, cc3 appropriate for age. Pain: Complains of pain in abdomen. GI: Abdomen is flat, Bowel sounds present X 4 quads. Abd is soft X 4 quads Abdomen is tender to palpation X 4 quads. Historical: - Allergies: 21:00 No Known Allergies; jb4 - Home Meds: 21:00 Tramadol Oral [Active]; Levemir subcutaneous [Active]; hydrocodone-acetaminophen 10-750 jb4 mg Oral tab 1 tab every 6 hours [Active]; Humalog Sub-Q [Active]; gabapentin 300 mg Oral cap [Active]; diazepam Oral [Active]; 21:06 Cipro Oral [Active]; cc3 - PMHx: 21:00 Anxiety; chronic back pain; Depression; Diabetes - IDDM; Esophageal stricture; jb4 - PSHx: 21:00 esophageal stricture surgery; ; jb4 - Immunization history:: Adult Immunizations up to date. - Social history:: Smoking status: Patient uses tobacco products, smokes one pack cigarettes per day. - Ebola Screening: : No symptoms or risks identified at this time. Screenin:06 Abuse screen: Denies threats or abuse. Denies injuries from another. Nutritional cc3 screening: No deficits noted. Tuberculosis screening: No symptoms or risk factors identified. Fall Risk Ambulatory Aid- None/Bed Rest/Nurse Assist (0 pts). Gait- Normal/Bed Rest/Wheelchair (0 pts) Mental Status- Oriented to own ability (0 pts). Assessment: 21:06 General: Appears in no apparent distress. uncomfortable, Behavior is calm, cooperative, cc3 appropriate for age. Pain: Complains of pain in abdomen. Neuro: Level of Consciousness is awake, alert, obeys commands, Oriented to person, place, time, situation, Appropriate for age. Cardiovascular: Denies chest pain, Heart tones S1 S2 present Capillary refill < 3 seconds in bilateral fingers Patient's skin is warm and dry. Respiratory: Airway is patent Respiratory effort is even, unlabored, Respiratory pattern is regular, symmetrical, Breath sounds are clear bilaterally. GI: Abdomen is flat, Bowel sounds present X 4 quads. Abd is soft X 4 quads Abdomen is tender to palpation X 4 quads. : No signs and/or symptoms were reported regarding the genitourinary system. EENT: No signs and/or symptoms were reported regarding the EENT system. Derm: Skin is intact, is healthy with good turgor, Skin is pink, warm \T\ dry. normal. Musculoskeletal: Circulation, motion, and sensation intact. Range of motion: intact in all extremities. 22:25 Reassessment: Patient appears in no apparent distress at this time. Patient and/or cc3 family updated on plan of care and expected duration. Pain level reassessed. Patient is alert, oriented x 3, equal unlabored respirations, skin warm/dry/pink. 23:10 Reassessment: Patient appears in no apparent distress at this time. Patient and/or cc3 family updated on plan of care and expected duration. Pain level reassessed. Patient is alert, oriented x 3, equal unlabored respirations, skin warm/dry/pink. 12 00:05 Reassessment: Patient appears in no apparent distress at this time. Patient and/or cc3 family updated on plan of care and expected duration. Pain level reassessed. Patient is alert, oriented x 3, equal unlabored respirations, skin warm/dry/pink. 01:30 Reassessment: Patient appears in no apparent distress at this time. Patient and/or cc3 family updated on plan of care and expected duration. Pain level reassessed. Patient is alert, oriented x 3, equal unlabored respirations, skin warm/dry/pink. Dr. Richardson discharged the patient home with prescriptions given. No IV cannula in situ. Patient left ER vitally stable and ambulatory with her . No valuables left in the patient's room. Patient denies pain at this time. Patient states feeling better. Patient states symptoms have improved. Vital Signs: 10/21 21:00 BP 152 / 89; Pulse 69; Resp 18; Temp 97.8(O); Pulse Ox 100% on R/A; Weight 54.43 kg jb4 (R); Height 5 ft. 0 in. (152.40 cm); Pain 10/10; 22:18 BP 149 / 87; Pulse 65; Resp 19 S; Pulse Ox 100% on R/A; cc3 23:40 BP 151 / 87; Pulse 71; Resp 17 S; Pulse Ox 100% on R/A; cc3 12/04 00:25 BP 143 / 77; Pulse 70; Resp 16 S; Pulse Ox 100% on R/A; cc3 01:15 BP 138 / 73; Pulse 73; Resp 16 S; Pulse Ox 100% on R/A; Pain 0/10; cc3 12 21:00 Body Mass Index 23.44 (54.43 kg, 152.40 cm) jb4 ED Course: 10/21 21:00 Arm band placed on right wrist. jb4 21:04 Patient arrived in ED. cf2 21:06 Regina Richards is Primary Nurse. cc3 21:06 Patient has correct armband on for positive identification. Placed in gown. Bed in low cc3 position. Call light in reach. Side rails up X2. Pulse ox on. NIBP on. 21:09 Koko Richardson MD is Attending Physician. tw4 21:30 Triage completed. jb4 21:45 Missed attempt(s): 22 gauge in left hand. Bleeding controlled, band aid applied, cc3 catheter tip intact. 22:05 Inserted saline lock: 22 gauge in right antecubital area, using aseptic technique. ca1 22:30 IV discontinued, intact, bleeding controlled, No redness/swelling at site. Pressure cc3 dressing applied. 22:55 Missed attempt(s): 20 gauge in left EJ. Bleeding controlled, band aid applied, catheter aa1 tip intact. 23:05 Missed attempt(s): 24 gauge in left wrist. Bleeding controlled, band aid applied, aa1 catheter tip intact. 10/22 01:30 No provider procedures requiring assistance completed. Patient did not have IV access cc3 during this emergency room visit. Administered Medications: 10/21 23:40 Drug: morphine 4 mg {Note: RASS 0.} Route: IM; Site: right gluteus; cc3 10/22 01:30 Follow up: Response: No adverse reaction; Pain is decreased; RASS: Alert and Calm (0) cc3 10/21 23:45 Drug: Phenergan 25 mg Route: IM; Site: left gluteus; cc3 10/22 01:30 Follow up: Response: No adverse reaction; Nausea is decreased cc3 Outcome: 01:22 Discharge ordered by . tw4 01:30 Discharged to home ambulatory, with family. cc3 01:30 Condition: stable 01:30 Discharge instructions given to patient, family, Instructed on discharge instructions, follow up and referral plans. medication usage, Demonstrated understanding of instructions, follow-up care, medications, Prescriptions given X 2. 01:45 Patient left the ED. cc3 Signatures: Ysabel Garcia, RN RN aa1 Eduardo Denton RN RN jb4 Koko Richardson MD MD tw4 Regina Richards cc3 Carol Valdes RN RN ca1 Heriberto Rangel 2
--- NOTE | 2019-10-22 01:22 | EDPHYS ---
Physician Documentation [facility] Name: Monique Junior Age: 38 yrs Sex: Female : 1980 Arrival Date: 10/21/2019 Time: 21:04 Bed 18 Private MD: ED Physician Koko Richardson HPI: 10/22 05:57 This 38 yrs old Female presents to ER via EMS with complaints of Abdominal tw4 Pain. 05:58 This 38 yrs old Female presents to ER via EMS with complaints of Abdominal tw4 Pain. 05:57 The patient presents with abdominal pain in the epigastric area. tw4 05:58 Onset: The symptoms/episode began/occurred 3 day(s) ago. The symptoms do not radiate. tw4 Associated signs and symptoms: Pertinent positives: nausea and vomiting, Pertinent negatives: blood in stools, chest pain, constipation, diarrhea, dysuria, fever, headache. The symptoms are described as dull. Modifying factors: The symptoms are alleviated by nothing, the symptoms are aggravated by nothing. The patient has not experienced similar symptoms in the past. Historical: - Allergies: 10/21 21:00 No Known Allergies; jb4 - Home Meds: 21:00 Tramadol Oral [Active]; Levemir subcutaneous [Active]; hydrocodone-acetaminophen 10-750 jb4 mg Oral tab 1 tab every 6 hours [Active]; Humalog Sub-Q [Active]; gabapentin 300 mg Oral cap [Active]; diazepam Oral [Active]; 21:06 Cipro Oral [Active]; cc3 - PMHx: 21:00 Anxiety; chronic back pain; Depression; Diabetes - IDDM; Esophageal stricture; jb4 - PSHx: 21:00 esophageal stricture surgery; ; jb4 - Immunization history:: Adult Immunizations up to date. - Social history:: Smoking status: Patient uses tobacco products, smokes one pack cigarettes per day. - Ebola Screening: : No symptoms or risks identified at this time. ROS: 10/22 05:58 Constitutional: Negative for fever, chills, and weight loss, Cardiovascular: Negative tw4 for chest pain, palpitations, and edema, Respiratory: Negative for shortness of breath, cough, wheezing, and pleuritic chest pain, Abdomen/GI: Negative for abdominal pain, nausea, vomiting, diarrhea, and constipation, Back: Negative for injury and pain, MS/Extremity: Negative for injury and deformity, Skin: Negative for injury, rash, and discoloration. Exam: 05:58 Constitutional: This is a well developed, well nourished patient who is awake, alert, tw4 and in no acute distress. Head/Face: Normocephalic, atraumatic. Chest/axilla: Normal chest wall appearance and motion. Nontender with no deformity. No lesions are appreciated. Cardiovascular: Regular rate and rhythm with a normal S1 and S2. No gallops, murmurs, or rubs. Normal PMI, no JVD. No pulse deficits. Respiratory: Lungs have equal breath sounds bilaterally, clear to auscultation and percussion. No rales, rhonchi or wheezes noted. No increased work of breathing, no retractions or nasal flaring. Back: No spinal tenderness. No costovertebral tenderness. Full range of motion. MS/ Extremity: Pulses equal, no cyanosis. Neurovascular intact. Full, normal range of motion. Neuro: Awake and alert, GCS 15, oriented to person, place, time, and situation. Cranial nerves II-XII grossly intact. Motor strength 5/5 in all extremities. Sensory grossly intact. Cerebellar exam normal. Normal gait. 05:58 Abdomen/GI: Inspection: abdomen appears normal, Bowel sounds: normal, Palpation: moderate abdominal tenderness, in the epigastric area. Vital Signs: 10/21 21:00 BP 152 / 89; Pulse 69; Resp 18; Temp 97.8(O); Pulse Ox 100% on R/A; Weight 54.43 kg jb4 (R); Height 5 ft. 0 in. (152.40 cm); Pain 10/10; 22:18 BP 149 / 87; Pulse 65; Resp 19 S; Pulse Ox 100% on R/A; cc3 23:40 BP 151 / 87; Pulse 71; Resp 17 S; Pulse Ox 100% on R/A; cc3 10/22 00:25 BP 143 / 77; Pulse 70; Resp 16 S; Pulse Ox 100% on R/A; cc3 01:15 BP 138 / 73; Pulse 73; Resp 16 S; Pulse Ox 100% on R/A; Pain 0/10; cc3 10/21 21:00 Body Mass Index 23.44 (54.43 kg, 152.40 cm) jb4 MDM: 10/21 21:09 Patient medically screened. tw4 10/22 05:59 Differential diagnosis: GI Bleed. Data reviewed: vital signs, nurses notes. Data tw4 interpreted: Pulse oximetry: Interpretation: normal. Counseling: I had a detailed discussion with the patient and/or guardian regarding: the historical points, exam findings, and any diagnostic results supporting the discharge/admit diagnosis. Medication response: Response to treatment: the patient's symptoms have markedly improved after treatment, and as a result, I will discharge patient. Special discussion: Based on the patient's Hx, exam, and Dx evaluation, there is no indication for emergent surgery or inpatient Tx. It is understood by the patient/guardian that if the Sx's persist or worsen they need to return immediately for re-evaluation. I discussed with the patient/guardian in detail that at this point there is no indication for admission to the hospital. It is understood, however, that if the symptoms persist or worsen the patient needs to return immediately for re-evaluation. 10/21 21:48 Order name: Glucose, Ancillary Testing; Complete Time: 00:07 EDDC 10/22 00:08 Interpretation: Normal except: GLUC,ANCIL 302. tw4 10/21 22:42 Order name: Basic Metabolic Panel; Complete Time: 00:07 tw4 10/22 00:08 Interpretation: Normal except: NA 133; GLUC 287; CL 97. tw4 10/21 22:42 Order name: CBC with Diff tw4 10/22 00:09 Interpretation: Normal except: WBC 16.2; MCV 84.8; MCH 29.4; BRIAN% 86.1; LYM% 9.7; NEUT tw4 A 14.0. 10/21 22:42 Order name: Creatinine for Radiology; Complete Time: 00:07 tw4 10/22 00:09 Interpretation: Within normal limits: GFR > 90; CRE 0.60. tw4 10/21 22:42 Order name: Hepatic Function; Complete Time: 00:07 tw4 10/22 00:08 Interpretation: Normal except: ALK 145; TP 8.5; GLOB 4.3; A/G 1.0. tw4 10/21 22:42 Order name: Lipase; Complete Time: 00:07 tw4 10/22 00:09 Interpretation: Within normal limits: LIP 49. tw4 10/21 22:42 Order name: Labs collected and sent; Complete Time: 01:44 4 10/21 23:11 Order name: Urine Dipstick--Ancillary (enter results); Complete Time: 00:07 4 10/22 00:09 Interpretation: Normal except: UGLUC 2+; UKET 3+; UBLD TRACE; UPROT 2+; UPH 8.0. 4 10/21 23:46 Order name: Manual Differential EDMS Administered Medications: 10/21 23:40 Drug: morphine 4 mg {Note: RASS 0.} Route: IM; Site: right gluteus; 3 10/22 01:30 Follow up: Response: No adverse reaction; Pain is decreased; RASS: Alert and Calm (0) 3 10/21 23:45 Drug: Phenergan 25 mg Route: IM; Site: left gluteus; 3 10/22 01:30 Follow up: Response: No adverse reaction; Nausea is decreased 3 Disposition: 10/22/19 01:22 Discharged to Home. Impression: Other viral enteritis. - Condition is Stable. - Discharge Instructions: Food Choices to Help Relieve Diarrhea, Adult, Viral Gastroenteritis, Adult. - Prescriptions for Bentyl 20 mg Oral Tablet - take 1 tablet by ORAL route every 6 hours As needed; 20 tablet. Zofran 4 mg/5 mL Oral Solution - take 2.5 milliliter by ORAL route every 6 hours As needed; 40 milliliter. - Medication Reconciliation Form, Thank You Letter, Antibiotic Education, Prescription Opioid Use form. - Follow up: Private Physician; When: Upon discharge from the Emergency Department; Reason: Recheck today's complaints, Continuance of care. - Problem is new. - Symptoms have improved. Signatures: Dispatcher [employer] EDMS Ysabel Garcia RN RN aa1 Eduardo Denton RN RN jb4 Koko Richardson MD MD tw4 Regina Richards cc3 Corrections: (The following items were deleted from the chart) 01:44 10/21 22:42 IV Saline Lock ordered. [facility] cc3 10/22 01:45 01:22 10/22/2019 01:22 Discharged to Home. Impression: Other viral enteritis. Condition cc3 is Stable. Forms are Medication Reconciliation Form, Thank You Letter, Antibiotic Education, Prescription Opioid Use. Follow up: Private Physician; When: Upon discharge from the Emergency Department; Reason: Recheck today's complaints, Continuance of care. Problem is new. Symptoms have improved. tw4
[2019-10-22 01:54] VITALS: BP 152/89; TEMP 97.8; O2SAT 100
== END 2019-10-22 01:45 | disposition home or self-care (01) ==
LOC: ER 20:57
DX: A08.4 Viral intestinal infection, unspecified (principal); E11.9 Type 2 diabetes mellitus without complications; F41.8 Other specified anxiety disorders; F17.210 Nicotine dependence, cigarettes, uncomplicated
CPT/HCPCS: 36415; 80048; 80076; 81003; 82947; 83690; 85025; 96372; 99284; J2550